=== PATIENT | female | born 1955 | race Caucasian/White ===

== ENCOUNTER 2017-01-18 14:09 | Emergency (ER) | payer OTHER ==
[~2017-01-18] VITALS: Ht 162.6 cm; Wt 95.3 kg
[~2017-01-18 14:09] MED LIST: ALBU1AER9 INH; AMIT25TA9 PO; LEVO112T2 PO; MELA1TAB18 PO; MULT-506 PO; VENL75CA PO; ZNTT/150 PO
[2017-01-18 14:15] VITALS: TEMP 36.9; Ht 162.6 cm; Wt 95.3 kg
[2017-01-18] MEDS ORDERED: PROMETHAZINE HCL INJ 25 MG/ML 1 ML VIAL IM STA (14:27)
[2017-01-18] MEDS ORDERED: KETOROLAC TROMETHAMINE 60 MG/2 ML VIAL IM STA (14:27)
[2017-01-18] MEDS ORDERED: CLOTRIMAZOLE 10 MG TROCHE MT STA (14:27)
[2017-01-18] MEDS ORDERED: HYDROmorphone INJ 2 MG/ML SYR/VIAL IM STA (14:27)
[2017-01-18] MEDS ORDERED: FLUCONAZOLE 200 MG/5 ML UDP PO STA (14:37)
--- NOTE | 2017-01-18 14:37 | EMERGENCY ROOM VISIT NOTE ---
History Report prepared by Armando: Torito Santos Under the Supervision of: Dr. Jose G Plunkett M.D. First contact with patient: 14:18 Chief Complaint: PAIN (GENERALIZED) Stated Complaint: SWOLLEN TONGUE, PAIN IN CHEST AND BACK History of Present Illness The patient is a 61 year old female who presents to the Emergency Room with complaints of worsening swollen tongue that started six days ago. She rates her discomfort as a 8/10 in severity. The patient states that she fell last week causing her pain in her back which prompted her to visit [facility]. She states that she was given Flexeril but did not have any imaging done. She states that she started to feel a burning sensation in her tongue that felt like thrush six days ago following her visit. She admits that she called her doctor but they reported she should present to the ED. The patient states that she has mouth ulcers since she has been taking her medication. She reports that she has been taking medication for her mouth ulcers but denies any relief. The patient states that she has contusions on her abdomen but does not remember when they are from and reports that they are not itchy. The patient admits that she has trouble swallowing currently and has been short of breath for months. She denies a history of diabetes. Source of History: patient Onset: six days ago Position: tongue Symptom Intensity: 8/10 Timing: worsening Associated Symptoms: + back pain Review of Systems See HPI for pertinent positives & negatives. A total of 10 systems reviewed and were otherwise negative. Past Medical & Surgical Medical Problems: (1) Bronchitis (2) Cholecystectomy (3) DEPRESSIVE DISORDER NEC (4) Hysterectomy (5) LUMBAR DISC DISPLACEMENT (6) MIGRAINE UNSPECIFIED W/O INTRACT MGRN W/O STATUS MIGRAINOSUS (7) Pneumonia (8) POIS-ANALGES/ANTIPYR NEC (9) UNSPECIFIED VIRAL HEPATITIS C WITHOUT HEPATIC COMA Family History Patient reports no known family medical history. Social History Smoking Status: Never Smoker Smokeless Tobacco Use: No Alcohol Use: occasionally (1 glass of wine/day) Drug Use: other (Opiates) Marital Status: Occupation Status: employed Current/Historical Medications Scheduled Amitriptyline Hcl (Elavil), 75 MG PO HS Docusate Sodium (Colace), 1 CAP PO BID Fluconazole (Diflucan), 200 MG PO DAILY Levothyroxine Sodium (Synthroid), 112 MCG PO QAM Melatonin (Melatonin Cr), 10 MG PO HS Multivitamin (Multivitamin), 1 TAB PO QAM Ranitidine (Zantac), 150 MG PO BID Sennosides (Senokot), 8.6 MG PO HS Venlafaxine Hcl (Effexor Xr), 225 MG PO HS Scheduled PRN Oxycodone/Acetaminophen 5MG/325MG (Percocet 5MG/325MG), 1-2 TAB PO Q4H PRN for Pain Miscellaneous Medications Albuterol Sulfate (Proair Respiclick) Allergies Coded Allergies: Interferon To-2a (Verified Allergy, Mild, RASH, 01/18/17) Penicillins (Verified Allergy, Mild, FEVER HIVES, 01/18/17) Sulfa Drugs (Verified Allergy, Unknown, FEVER HIVES, 01/18/17) Tramadol (Verified Allergy, Unknown, SEIZURE, 01/18/17) GMG Physical Exam Vital Signs Date Time Temp Pulse Resp B/P (MAP) Pulse Ox O2 Delivery O2 Flow Rate FiO2 01/18/17 16:31 81 16 113/59 95 Room Air 01/18/17 15:24 81 18 117/87 94 01/18/17 14:25 94 01/18/17 14:15 36.9 89 18 133/70 91 Room Air Physical Exam GENERAL: Patient is a healthy-appearing well-nourished 61 year old female. HEAD: Normocephalic atraumatic EYES: Ocular movements intact pupils equal and react to light OROPHARYNX Mouth ulcers present. No evidence of allergy. Tongue white in appearance mucous membranes are moist no exudates present no erythema or edema present NECK: Supple no nuchal rigidity CHEST: Good equal expansion LUNGS: Clear and equal to auscultation CARDIAC: Normal S1 and S2 ABDOMEN: Soft nontender no guarding BACK: No CVA tenderness EXTREMITIES: No pain upon palpation normal muscle strength in all groups no clubbing cyanosis or edema NEURO: No saddle anesthesia. Can walk on heels and toes. No loss of bowel or bladder control. Patient is following commands and answering questions appropriately. Alert and oriented x3 Cranial Nerves 2-12 grossly intact Medical Decision & Procedures ER Provider Diagnostic Interpretation: Radiology results as stated below per my review and radiologist interpretation: LUMBAR SPINE 5 VIEWS HISTORY: Pain Pt c/o low back pain COMPARISON: 07/07/2009 FINDINGS: No acute fractures identified. There is evidence for a slight compression deformity superior endplate L3 with irregularity of the anterior superior endplate of L3. This has been present previously and is considered be a chronic finding. There is no evidence for an acute compression deformity. There is no acute subluxation. There is moderate degenerative disc change throughout. No subluxation. IMPRESSION: Moderate rather significant degenerative disc changes throughout. Slight compression deformity superior endplate L3 considered old. No acute process. Electronically signed by: Mathieu Laboy M.D. 01/18/2017 3:10 PM Dictated Date/Time: 01/18/2017 3:08 PM Medications Administered Medications (Trade) Dose Ordered Sig/Carlos Route Start Time Stop Time Status Last Admin Dose Admin Clotrimazole (Mycelex 10MG Joseline) 1 joseline NOW STAT MT 01/18/17 14:27 01/18/17 14:30 DC 01/18/17 14:27 1 JOSELINE Hydromorphone HCl (Dilaudid Inj) 2 mg NOW STAT IM 01/18/17 14:27 01/18/17 14:30 DC 01/18/17 14:44 2 MG Promethazine HCl (Phenergan Inj) 25 mg NOW STAT IM 01/18/17 14:27 01/18/17 14:30 DC 01/18/17 14:46 25 MG Ketorolac Tromethamine (Toradol Inj) 60 mg NOW STAT IM 01/18/17 14:27 01/18/17 14:30 DC 01/18/17 14:47 60 MG Fluconazole (Diflucan Susp) 200 mg NOW STAT PO 01/18/17 14:37 01/18/17 14:38 DC 01/18/17 15:24 200 MG ECG Indication: back/shoulder pain Rate (beats per minute): 96 Rhythm: normal sinus Findings: no acute ischemic change, no ectopy ED Course 1413: Past medical records reviewed. The patient was evaluated in room B03. A complete history and physical examination was performed. 1427: Toradol Injection 60 mg IM, Phenergan Injection 25 mg IM, Dilaudid Injection 2 mg IM, Clotrimazole 1 joseline MT. 1437: Fluconazole 200 mg PO. 1553:Medication Reconciliation: I attest that I have personally reviewed the patient's current medication list Blood Pressure Screening: Patient was found to have an elevated blood pressure and was referred to their primary care doctor for recheck and further treatment 1555: I reevaluated the patient and she is resting comfortable. She is waiting for the radiology results. 1648: Upon reexamination the patient is resting comfortably. I discussed results and treatment plan with the patient. She verbalizes agreement and understanding. The patient is ready for discharge. Medical Decision The differential diagnosis includes but is not limited to: Etiologies such as musculoskeletal, disc herniation, fracture, aortic disease, metastatic disease, cord compression, discitis, infection, renal colic, gastrointestinal, acute exacerbation of chronic back pain, sciatica, cauda equina, as well as others were entertained. Blood Pressure Screening: Patient was found to have an elevated blood pressure and was referred to their primary care doctor for recheck and further treatment Medication Reconciliation: I attest that I have personally reviewed the patient' s current medication list This is a 78-year-old female who presents emergency department complaining of low back pain. I will note that the patient is able to walk on her tiptoes and her heels has no evidence of saddle anesthesia and in addition has no loss of bowel or bladder control. The patient is complaining of what appears to be thrush in her mouth. She is been using nystatin swish and swizzle with little results. Therefore the patient was given fluconazole 200 mg daily. In addition the patient was given IM Dilaudid as well as Toradol. Her x-rays do not show any evidence of fracture dislocation or subluxation. I believe the patient can be discharged to follow-up with orthopedics. Patient was in agreement with the treatment plan. Impression Primary Impression: Back pain Additional Impression: Thrush Scribe Attestation The scribe's documentation has been prepared under my direction and personally reviewed by me in its entirety. I confirm that the note above accurately reflects all work, treatment, procedures, and medical decision making performed by me. Departure Information Dispostion Home / Self-Care Prescriptions Docusate Sodium (COLACE) 100 Mg Cap 1 CAP PO BID for 10 Days, #20 CAP Prov: Jose G Plunkett MD 01/18/17 Sennosides (SENOKOT) 8.6 Mg Tab 8.6 MG PO HS for 10 Days, #10 TAB Prov: Jose G Plunkett MD 01/18/17 Oxycodone/Acetaminophen 5MG/325MG (PERCOCET 5MG/325MG) Tab 1-2 TAB PO Q4H Y for Pain, #14 TAB Prov: Jose G Plunkett MD 01/18/17 Fluconazole (DIFLUCAN) 200 Mg Tab 200 MG PO DAILY for 14 Days, #14 TAB Prov: Jose G Plunkett MD 01/18/17 Referrals Nile Sanderson III, M.D. (PCP) Forms HOME CARE DOCUMENTATION FORM, IMPORTANT VISIT INFORMATION, WORK / SCHOOL INSTRUCTIONS Patient Instructions ED Exercises Lumbar Muscles, ED Sprain Strain Lumbar, Lumbar Pain Causes, My Zapproved, Thrush Oral Additional Instructions You were found to have an elevated blood pressure today (>120 sytolic or >90 diastolic). Per medicare guidelines, you need to follow up with this blood pressure screening with your Primary Care Physician (PCP). For a new PCP call [phone]. You received narcotic or benzodiazepene medication while in the emergency room today. Do not drive, operate heavy machinery, or drink alcohol under the influence of this medication. Take 600 mg Ibuprofen every 6 hours Take Percocet for breakthrough pain You have been examined and treated today on an emergency basis only. This is not a substitute for, or an effort to provide, complete comprehensive medical care. It is impossible to recognize and treat all injuries or illnesses in a single emergency department visit. It is therefore important that you follow up closely with Dr Sanderson. Call as soon as possible for an appointment. Thank you for your time and consideration. I look forward to speaking with you again soon. Please don't hesitate to call us if you have any questions. Problem Qualifiers Primary Impression: Back pain Back pain location: low back pain Chronicity: acute Back pain laterality: right Sciatica presence: without sciatica Qualified Codes: M54.5 - Low back pain
[2017-01-18] MEDS ORDERED: ALBU18002 INH (14:41)
--- NOTE | 2017-01-18 15:12 | DIAGNOSTIC IMAGING REPORT ---
LUMBAR SPINE 5 VIEWS HISTORY: Pain Pt c/o low back pain COMPARISON: 07/07/2009 FINDINGS: No acute fractures identified. There is evidence for a slight compression deformity superior endplate L3 with irregularity of the anterior superior endplate of L3. This has been present previously and is considered be a chronic finding. There is no evidence for an acute compression deformity. There is no acute subluxation. There is moderate degenerative disc change throughout. No subluxation. IMPRESSION: Moderate rather significant degenerative disc changes throughout. Slight compression deformity superior endplate L3 considered old. No acute process. Electronically signed by: Mathieu Laboy M.D. 01/18/2017 3:10 PM Dictated Date/Time: 01/18/2017 3:08 PM
[2017-01-18] MEDS ORDERED: OXYC-57 PO (15:47)
[2017-01-18] MEDS ORDERED: FLUC200T PO (15:47)
[2017-01-18] MEDS ORDERED: SENN1TAB77 PO (15:55)
[2017-01-18] MEDS ORDERED: DOCU-94 PO (15:55)
[2017-01-18 16:31] VITALS: BP 113/59; PULSE 81; O2SAT 95
== END 2017-01-18 16:35 | disposition home or self-care (01) ==
LOC: C.EDB 14:11
DX: M54.5 Low back pain (principal); B37.0 Candidal stomatitis; F32.9 Major depressive disorder, single episode, unspecified; Z91.81 History of falling; Z87.01 Personal history of pneumonia (recurrent); Z90.49 Acquired absence of other specified parts of digestive tract; Z90.710 Acquired absence of both cervix and uterus; Z79.899 Other long term (current) drug therapy

== ENCOUNTER 2017-01-29 14:19 | Emergency (ER) | payer OTHER ==
[~2017-01-29] VITALS: Ht 162.6 cm; Wt 90.3 kg
[~2017-01-29 14:19] MED LIST changes: +ALBU18002 INH; -ALBU1AER9 INH; +DOCU-94 PO; +FLUC200T PO; +OXYC-57 PO; +SENN1TAB77 PO
[2017-01-29 14:21] VITALS: TEMP 36.7; Ht 162.6 cm; Wt 90.3 kg
[2017-01-29] MEDS ORDERED: MELO7.5T5 PO (14:28)
[2017-01-29] MEDS ORDERED: OXYCODONE/ACETAMINOPHEN 5-325 TAB PO STA (14:37)
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
--- NOTE | 2017-01-29 15:14 | DIAGNOSTIC IMAGING REPORT ---
RIGHT ELBOW 3 VIEWS; RIGHT FOREARM 2 VIEWS CLINICAL HISTORY: Fall with left arm pain. FINDINGS: 3 views of the left elbow with AP and lateral views of the left forearm are obtained. Correlation is made with radiographs of the left wrist dated 07/08/2009. The skeletal structures are well mineralized. There is a minimally distracted and angulated fracture of the radial head. There is an associated elbow joint effusion. No elbow dislocation is seen. No additional fracture is identified. The distal radius and the ulna are intact. There is joint is grossly maintained. The ulnar styloid is diminutive versus chronically avulsed. The overlying soft tissues are within normal limits. IMPRESSION: 1. There is a minimally distracted and angulated radial head fracture with associated joint effusion. 2. No additional fracture is seen around the elbow or in the forearm. Electronically signed by: Aurelio Gaspar M.D. 01/29/2017 3:12 PM Dictated Date/Time: 01/29/2017 3:09 PM
[2017-01-29] MEDS ORDERED: MoRPHine SULFATE 4 MG/ML 1 ML CARP\\VIAL IM STA (15:30)
[2017-01-29] MEDS ORDERED: OXYC1TAB3 PO (15:43)
[2017-01-29 15:57] VITALS: BP 163/90; PULSE 76; O2SAT 96
== END 2017-01-29 15:57 | disposition home or self-care (01) ==
LOC: C.EDB 14:21 → C.EDD 15:57
DX: S52.121A Displaced fracture of head of right radius, initial encounter for closed fracture (principal); V19.88XA Pedal cyclist (driver) (passenger) injured in other specified transport accidents, initial encounter; E03.9 Hypothyroidism, unspecified; Z79.899 Other long term (current) drug therapy; F32.9 Major depressive disorder, single episode, unspecified